=== PATIENT | female | born 1990 | race African-American/Black ===

== ENCOUNTER 2017-06-03 14:42 | Emergency (ER) | payer MEDICAID, OTHER ==
[~2017-06-03 14:42] MED LIST: DIFL150T PO; METR1GEL2 PV; ORTHDIS TD
[2017-06-03 14:43] VITALS: BP 124/76; PULSE 80; RESP 12; TEMP 98.4; O2SAT 99
[2017-06-03 15:51] LABS: AUTOMATED NEUTROPHIL # 5.5 TH/MM3 (1.8-7.7); BASOPHIL # 0.1 TH/MM3 (0-0.2); BASOPHIL % 0.6 % (0.0-2.0); EOSINOPHIL # 0.3 TH/MM3 (0-0.4); EOSINOPHIL % 3.4 % (0.0-4.0); HEMATOCRIT 34.4 % (35.0-46.0); HEMO FLAGS DIFF FINAL; LYMPH % 30.5 % (9.0-44.0); LYMPHOCYTE # 2.9 TH/MM3 (1.0-4.8); MEAN CELL VOLUME 95.2 FL (80.0-100.0); MEAN CORPUSCULAR HEMOGLOBIN 32.6 PG (27.0-34.0); MEAN CORPUSCULAR HGB CONC 34.3 % (32.0-36.0); MONO % 8.2 % (0.0-8.0); NEUT % 57.3 % (16.0-70.0); PLATELET COUNT 208 TH/MM3 (150-450); RED BLOOD COUNT 3.62 MIL/MM3 (4.00-5.30); RED CELL DISTRIBUTION WIDTH 13.3 % (11.6-17.2); WHITE BLOOD COUNT 9.6 TH/MM3 (4.0-11.0)
[2017-06-03 15:56] LABS: BACTERIA, URINE FEW /hpf; BLOOD, URINE NEG (NEG); COMMENT (UR) CULTURE INDICATED; CULTURE IF INDICATED CULTURE INDICATED; GLUCOSE,URINE NEG (NEG); KETONE, URINE NEG (NEG); MUCUS URINE FEW /lpf (OCC); NITRITE,URINE NEG (NEG); SQUAMOUS EPITHELIAL CELL URINE 3 /hpf (0-5); URINE COLOR YELLOW (YELLW/STRAW)
[2017-06-03 15:58] LABS: APTT (PATIENT) 24.1 SEC (24.3-30.1); INTERNATIONAL NORMALIZED RATIO 0.9 RATIO
[2017-06-03] MEDS ORDERED: PREN29TA PO (16:02)
[2017-06-03 16:06] VITALS: BP 111/62; PULSE 74; RESP 16; O2SAT 100
[2017-06-03 16:19] LABS: BICARBONATE 22.6 MEQ/L (21.0-32.0); POTASSIUM 3.9 MEQ/L (3.5-5.1)
[2017-06-03 17:00] VITALS: BP 115/65; PULSE 78; RESP 14; O2SAT 100
--- NOTE | 2017-06-03 17:13 | PD ---
HPI Chief Complaint: Abdominal Pain Time Seen by Provider: 16:17 Travel History International Travel<30 days: No Contact w/Intl Traveler<30days: No Traveled to known affect area: No History of Present Illness HPI 27-year-old approximately 12 weeks female presents to the emergency room 3 evaluation of discharge and lower pelvic pain for the past week. Discharge has changed in color from yellow to dark red. Patient states it reminds her of the mucus plug. She had an ultrasound at 8 weeks that showed she had a subchorionic hemorrhage. She has not seen an OB yet because she has not been able to get her insurance worked out. Denies any concern for STD. She has some dysuria and occasional back pain. No fever, chills, nausea, vomiting. PFSH Past Medical History Medical History: Denies Significant Hx Diminished Hearing: No Influenza Vaccination: No ?: LMP: 03/04/2017 : 5 Para: 4 Past Surgical History Appendectomy: Yes Social History Alcohol Use: No Tobacco Use: No Substance Use: No Allergies-Medications (Allergen,Severity, Reaction): Coded Allergies: lemon (Unverified Allergy, Severe, hives, 06/03/17) Reported Meds & Prescriptions Reported Meds & Active Scripts Active Flagyl (Metronidazole) 500 Mg Tab 500 Mg PO Q12HR 7 Days Macrobid (Nitrofurantoin Monohydrate Macrocrystals) 100 Mg Capsule 100 Mg PO BID 7 Days Reported Plus Iron 29-1 mg ( Vit-Iron Carbonyl) 29 Mg Iron-1 Mg Tab 1 Tab PO DAILY Review of Systems Except as stated in HPI: all other systems reviewed are Neg Physical Exam Narrative GENERAL: Well-nourished, well-developed female in no acute distress. Afebrile. Ambulatory. SKIN: Focused skin assessment warm/dry. HEAD: Normocephalic. EYES: No scleral icterus. No injection or drainage. NECK: Supple, trachea midline. No JVD or lymphadenopathy. CARDIOVASCULAR: Regular rate and rhythm without murmurs, gallops, or rubs. RESPIRATORY: Breath sounds equal bilaterally. No accessory muscle use. GASTROINTESTINAL: Abdomen soft, nondistended. Gravid. Mild tenderness to palpation to the left lower quadrant. GENITOURINARY: Normal external genitalia without lesions or erythema. Vaginal vault without blood but with significant, thick drainage. Cervical os could not be visualized but by feel was closed. No cervical motion tenderness. Uterus nontender and nonenlarged. Bilateral adnexa nontender without masses. Data Data Last Documented VS Vital Signs Date Time Temp Pulse Resp B/P (MAP) Pulse Ox O2 Delivery O2 Flow Rate FiO2 06/03/17 17:00 78 14 115/65 (82) 100 Room Air 06/03/17 14:43 98.4 Orders Orders Basic Metabolic Panel (Bmp) (06/03/17 14:51) Beta Hcg (Quant/Titer) (06/03/17 14:51) Complete Blood Count With Diff (06/03/17 14:51) Prothrombin Time / Inr (Pt) (06/03/17 14:51) Act Partial Throm Time (Ptt) (06/03/17 14:51) Urinalysis - C+S If Indicated (06/03/17 14:51) Gc And Chlamydia Pcr (06/03/17 14:51) Urine Culture (06/03/17 14:55) Wet Prep Profile (06/03/17 17:33) Labs Laboratory Tests Test 06/03/17 14:55 06/03/17 15:11 06/03/17 17:30 Urine Color YELLOW Urine Turbidity CLEAR Urine pH 6.0 Urine Specific Robinson 1.022 Urine Protein NEG mg/dL Urine Glucose (UA) NEG mg/dL Urine Ketones NEG mg/dL Urine Occult Blood NEG Urine Nitrite NEG Urine Bilirubin NEG Urine Urobilinogen LESS THAN 2.0 MG/DL Urine Leukocyte Esterase MOD Urine RBC 3 /hpf Urine WBC 12 /hpf Urine Squamous Epithelial Cells 3 /hpf Urine Bacteria FEW /hpf Urine Mucus FEW /lpf Microscopic Urinalysis Comment CULTURE INDICATED Chlamydia trachomatis DNA (PCR) NOT DETECTED Neisseria gonorrhoeae DNA (PCR) NOT DETECTED White Blood Count 9.6 TH/MM3 Red Blood Count 3.62 MIL/MM3 Hemoglobin 11.8 GM/DL Hematocrit 34.4 % Mean Corpuscular Volume 95.2 FL Mean Corpuscular Hemoglobin 32.6 PG Mean Corpuscular Hemoglobin Concent 34.3 % Red Cell Distribution Width 13.3 % Platelet Count 208 TH/MM3 Mean Platelet Volume 9.2 FL Neutrophils (%) (Auto) 57.3 % Lymphocytes (%) (Auto) 30.5 % Monocytes (%) (Auto) 8.2 % Eosinophils (%) (Auto) 3.4 % Basophils (%) (Auto) 0.6 % Neutrophils # (Auto) 5.5 TH/MM3 Lymphocytes # (Auto) 2.9 TH/MM3 Monocytes # (Auto) 0.8 TH/MM3 Eosinophils # (Auto) 0.3 TH/MM3 Basophils # (Auto) 0.1 TH/MM3 CBC Comment DIFF FINAL Differential Comment Prothrombin Time 10.0 SEC Prothromb Time International Ratio 0.9 RATIO Activated Partial Thromboplast Time 24.1 SEC Blood Urea Nitrogen 8 MG/DL Creatinine 0.58 MG/DL Random Glucose 71 MG/DL Calcium Level 8.9 MG/DL Sodium Level 136 MEQ/L Potassium Level 3.9 MEQ/L Chloride Level 105 MEQ/L Carbon Dioxide Level 22.6 MEQ/L Anion Gap 8 MEQ/L Estimat Glomerular Filtration Rate 152 ML/MIN Human Chorionic Gonadotropin, Quant 248628 MIU/ML Clue Cells (Wet Prep) NS Vaginal Trichomonas (Wet Prep) PRESENT Vaginal Yeast (Wet Prep) NS MDM Medical Decision Making Medical Screen Exam Complete: Yes Emergency Medical Condition: Yes Medical Record Reviewed: Yes Differential Diagnosis , STD, BV, subchorionic hemorrhage, threatened miscarriage Narrative Course 27-year-old 12 week female presents to the emergency room for evaluation of vaginal bleeding and abnormal discharge for the past week. She has also had associated left lower pelvic cramping and dysuria. Patient had ultrasonic 8 weeks ago confirmed intrauterine and subchorionic hemorrhage. Bedside ultrasound today shows active fetus with heart rate of 158 bpm. Abdomen is mildly tender to palpation of the left leg region. No peritoneal signs. No rebound tenderness. Pelvic exam reveals moderate, purulent, thick discharge. Cervical os is closed by feel but could not be visualized. Blood type is B+ and she will not require RhoGAM. CBC, BMP unremarkable. UA shows evidence of urinary tract infection for which patient will be discharged with prescription for Macrobid. She will also be treated empirically for gonorrhea and chlamydia. GC and chlamydia ordered and pending. Wet prep shows evidence of Trichomonas. She was reassured and told to follow- up with an OB or return to the emergency room for worsening symptoms. She understands and agrees to plan. Diagnosis Primary Impression: Trichomonas infection Additional Impression: UTI (urinary tract infection) Qualified Codes: N30.00 - Acute cystitis without hematuria Referrals: [facility] [facility] Additional Instructions: Rest and drink plenty of fluids. Macrobid and Flagyl as directed, until gone. Tylenol as directed, as needed for pain. Apply ice to the affected area for 20 minutes at a time, as needed for pain and swelling. Follow-up with [facility] this week. Return to the emergency room for worsening symptoms. Scripts Metronidazole (Flagyl) 500 Mg Tab 500 MG PO Q12HR for Infection for 7 Days, TAB 0 Refills Prov: Cam Nieto MD 06/03/17 Nitrofurantoin Monohydrate Macrocrystals (Macrobid) 100 Mg Capsule 100 MG PO BID for Infection for 7 Days, #14 CAP 0 Refills Prov: Cam Nieto MD 06/03/17 Disposition: 01 DISCHARGE HOME Condition: Stable Brittany Marin Jun 03, 2017 17:13
[2017-06-03 17:55] LABS: CHLAMYDIA PCR NOT DETECTED (NOT DETECT); NEISSERIA PCR NOT DETECTED (NOT DETECT)
[2017-06-03] MEDS ORDERED: MACR100C2 PO (18:09)
[2017-06-03] MEDS ORDERED: METR-1 PO (18:09)
== END 2017-06-03 19:03 | disposition home or self-care (01) ==
LOC: NEPD 14:42
DX: O98.311 Other infections with a predominantly sexual mode of transmission complicating pregnancy, first trimester (principal); A59.9 Trichomoniasis, unspecified; O23.11 Infections of bladder in pregnancy, first trimester; Z3A.12 12 weeks gestation of pregnancy
CPT/HCPCS: 80048; 81001; 84702; 85025; 85610; 85730; 87086; 87210; 87491; 87591; 99283

== ENCOUNTER → 2017-09-04 | Outpatient (CLI) | payer OTHER ==
[~2017-09-04] MED LIST changes: -DIFL150T PO; +FERRTAB2 PO; -METR1GEL2 PV; -ORTHDIS TD; +[UNRECOGNIZED DRUG - CODE] PO
== END ==
LOC: HPND 09:17
PROVIDERS: ATTEND Obstetrics & Gynecology
DX: O09.892 Supervision of other high risk pregnancies, second trimester (principal)
CPT/HCPCS: 76805

== ENCOUNTER 2017-09-19 17:04 | Emergency (ER) | payer OTHER ==
[2017-09-19 18:13] LABS: BACTERIA, URINE RARE /hpf; BILIRUBIN, URINE NEG (NEG); BLOOD, URINE NEG (NEG); GLUCOSE,URINE NEG (NEG); KETONE, URINE NEG (NEG); MUCUS URINE FEW /lpf (OCC); NITRITE,URINE NEG (NEG); PH, URINE 6.5 (5.0-8.5); SQUAMOUS EPITHELIAL CELL URINE 7 /hpf (0-5); URINE COLOR LIGHT-YELLOW (YELLW/STRAW); URINE LEUKOCYTE ESTERASE NEG (NEG)
--- NOTE | 2017-09-19 18:36 | PD ---
HPI Chief Complaint Vaginal pressure Travel History International Travel<30 Days: No Contact w/Intl Traveler<30Days: No Known Affected Area: No History of Present Illness HPI 27-year-old 304, IUP at 28.0 care complicated by history of delivery 3, obesity history of with a heart defect Patient presents complaining of onset of vaginal pressure today that radiates to her buttocks. She reports that this is a different sensation that she has felt the past and due to her history of 3 deliveries she came to get this checked out. She denies any contractions or painful cramping. She denies any leaking of fluid or vaginal bleeding. There are no aggravating or alleviating factors and no attempted treatments. Weeks Gestation: 28 Para: 4 : 5 Miscarriage: 0 : 0 History Past Medical History Narrative Medical Obesity Obstetric History Obstetric History delivery 3 at 31, 35, and 36 weeks Term delivery 1 at 38 weeks Past Surgical History Narrative Surgical Appendectomy Family History Narrative Family History Diabetes, hypertension Social History Alcohol Use: No Tobacco Use: No Substance Abuse: No Allergies-Medications (Allergen,Severity, Reaction): Coded Allergies: lemon (Unverified Allergy, Severe, hives, 07/29/17) Home Meds Active Scripts Docusate Sodium (Gnp Stool Softener) 100 Mg Cap, 1 CAP PO BID for 30 Days, #60 CAP 2 Refills Prov:Milagros Damon CNM [facility] 07/15/17 Multi-Vit/Iron-Folic [id number] C (Ferralet) 90-1-0.012-120 mg Tab, 11 CAPLET PO DAILY for 30 Days, #60 CAPLET 2 Refills Prov:Milagros Damon CNM [facility] 07/15/17 Review of Systems Except as stated in HPI: all other systems reviewed are Neg Physical Exam Narrative GENERAL: Well-nourished, well-developed patient. SKIN: Warm and dry. HEAD: Normocephalic and atraumatic. EYES: No scleral icterus. No injection or drainage. ENT: No nasal drainage noted. Mucous membranes pink. Airway patent. NECK: Supple, trachea midline. No JVD. CARDIOVASCULAR: Regular rate and rhythm without murmurs, gallops, or rubs. RESPIRATORY: Breath sounds equal bilaterally. No accessory muscle use. BREASTS: Deferred ABDOMEN/GI: Abdomen soft, non-tender, bowel sounds present, no rebound, no guarding Gravid GENITOURINARY: External Genitalia: intact and normal in appearance. Normal BUS. Grossly normal rugae. No cervical or vaginal masses. Physiologic discharge noted. Cervix appears visually closed. fibronectin was obtained and was negative. SVE closed/thick/high/posterior FHT's: heart tones are in the 130s with moderate long-term variability, good accelerations, no decelerations noted. The heart rate tracing is reactive for gestational age and is a category 1 heart rate tracing. EXTREMITIES: No cyanosis or edema. BACK: Nontender without obvious deformity. NEUROLOGICAL: Awake and alert. Motor and sensory grossly within normal limits. Normal speech. Musculoskeletal: Grossly normal range of motion, gait, muscle strength Psychiatric: Grossly normal memory and affect Data Data Orders Orders Vital Signs (Adult) .ON ADMISSION (09/19/17 17:54) ^ Labor Status (09/19/17 17:54) Urinalysis - C+S If Indicated (09/19/17 17:54) ^ Non Stress Test (09/19/17 17:54) Diet Liquid (09/19/17 Dinner) Fibronectin (09/19/17 17:54) Labs Laboratory Tests Test 09/19/17 17:45 Urine Color LIGHT-YELLOW Urine Turbidity CLEAR Urine pH 6.5 Urine Specific [place] 1.015 Urine Protein NEG Urine Glucose (UA) NEG Urine Ketones NEG Urine Occult Blood NEG Urine Nitrite NEG Urine Bilirubin NEG Urine Urobilinogen LESS THAN 2.0 Urine Leukocyte Esterase NEG Urine RBC 1 Urine WBC 1 Urine Squamous Epithelial Cells 7 Urine Bacteria RARE Urine Mucus FEW Microscopic Urinalysis Comment CULT NOT INDICATED Fibronectin NEGATIVE MDM Plan Assessment/plan: 1. IUP at 28.0 2. Poor OB history with history of delivery 3, patient to start receiving Rosette from her OB office 3. Vaginal/buttocks pressure: No evidence of uterine contractions on monitoring , fibronectin negative, cervix closed/thick/high, no evidence of labor. Strict labor precautions. Discussed Celestone administration if she presents with signs/symptoms of labor however there are no signs or symptoms of this today and the fibronectin was negative so will defer. Discussed that this has positive influence on the lung maturity. 4. Obesity 5. well-being: Reassuring testing with reactive NST for gestational age and category 1 heart rate tracing. heart rate is reassuring and appropriate for gestational age. kick counts daily. 6. Follow up with primary OB in 2-3 days or sooner if needed Diagnosis Diagnosis: Primary Impression: 28 weeks gestation of Additional Impression: False labor before 37 completed weeks of gestation during in third trimester, antepartum Disposition: 01 DISCHARGE HOME Condition: Rosie Abraham MD Sep 19, 2017 18:36
== END 2017-09-19 19:46 | disposition home or self-care (01) ==
LOC: HOBED 17:04
DX: O47.03 False labor before 37 completed weeks of gestation, third trimester (principal); O99.213 Obesity complicating pregnancy, third trimester; Z3A.28 28 weeks gestation of pregnancy
CPT/HCPCS: 81001; 82731; 99283

== ENCOUNTER → 2017-10-07 | Outpatient (CLI) | payer OTHER | LOC: HPND 13:19 | PROVIDERS: ATTEND Obstetrics & Gynecology | DX: O34.33 Maternal care for cervical incompetence, third trimester (principal); O09.213 Supervision of pregnancy with history of pre-term labor, third trimester; O43.893 Other placental disorders, third trimester | CPT/HCPCS: 76816 ==

== ENCOUNTER 2017-10-24 05:24 | Inpatient (IN) | payer OTHER ==
[2017-10-24] VITALS (13 sets, daily range): BP systolic 115–119; BP diastolic 57–74; PULSE 89–96; RESP 15–18; TEMP 98–98.5
[~2017-10-24] VITALS: Ht 157.5 cm; Wt 74.0 kg
[2017-10-24] MEDS ORDERED: SODIUM CHLORIDE 0.9% FLUSH 10 ML FLUSH IV FLUSH PRN (06:15)
[2017-10-24] MEDS ORDERED: PENICILLIN G POTASSIUM INJ 5,000,000 UNITS in SODIUM CHLORIDE 0.9% INJ 100 ML IV SCH (06:15)
[2017-10-24] MEDS ORDERED: ACETAMINOPHEN 325 MG TAB PO PRN (06:15)
[2017-10-24] MEDS ORDERED: ONDANSETRON HCL 4 MG/2 ML VIAL IV PUSH PRN (06:15)
[2017-10-24] MEDS ORDERED: CALCIUM GLUCONATE 10% 1 GM/10 ML VIAL IV PUSH PRN (06:15)
[2017-10-24] MEDS ORDERED: DOCUSATE SODIUM 100 MG CAP PO PRN (06:15)
--- NOTE | 2017-10-24 06:31 | HHI.HP ---
HPI Chief Complaint Checo martinez Date Seen: Oct 24, 2017 Time Seen: 06:00 Travel History International Travel<30 Days: No Contact w/Intl Traveler<30Days: No Known Affected Area: No History of Present Illness HPI Patient is 27-year-old black female 33 weeks gestation [facility] and presents with premature rupture the membranes, her amnisure is positive, she denies bleeding or significant pain she is however having a few irregular contractions. heart rate tracing is reactive. Patient was hospital last week [place] for vaginal bleeding she described as more than a period, she received steroids in that hospitalization and she says they could not find the reason for her bleeding she was kept about 72 hours and then sent home. She has a history of placental cyst on ultrasound in this is documented in her records also she has a history of delivery with 3 of her 4 current children and in 1 of those deliveries she did have PROM Weeks Gestation: 33 Para: 4 : 5 History Obstetric History Obstetric History with 3 of those deliveries Has had vaginal bleeding in this was hospitalized last week [facility] Past Surgical History Narrative Surgical Appendectomy Social History Narrative Social History She had marijuana use prior to none in Alcohol Use: No Tobacco Use: No Substance Abuse: Yes Allergies-Medications (Allergen,Severity, Reaction): Coded Allergies: lemon (Unverified Allergy, Severe, hives, 10/24/17) bee venom protein (honey bee) (Verified Allergy, Unknown, 10/24/17) Home Meds Active Scripts Multi-Vit/Iron-Folic [id number] C (Ferralet) 90-1-0.012-120 mg Tab, 11 CAPLET PO DAILY for 30 Days, #60 CAPLET 2 Refills Prov:Milagros Damon CNM [facility] 07/15/17 Discontinued Scripts Docusate Sodium (Gnp Stool Softener) 100 Mg Cap, 1 CAP PO BID for 30 Days, #60 CAP 2 Refills Prov:Milagros Damon CNM [facility] 07/15/17 Review of Systems General / Constitutional: No: Fever, Weight Gain, Chills, Other Eyes: No: Diploplia, Blurred Vision, Visual changes, Pain, Photophobia HENT: No: Headaches, Vertigo, Lightheadedness Cardiovascular: No: Irregular Rhythm, Chest Pain or Discomfort, Palpitations, Tachycardia, Syncope, Varicosities, Edema, Cyanosis Respiratory: No: Cough, Short of Breath, Other Gastrointestinal: No: Nausea, Vomiting, Diarrhea Genitourinary: No: Decreased Urinary Output, Oliguria Musculoskeletal: No: Limited ROM, Weakness, Cramping, Edema, Pain Skin: No Rash, No Itching, No Dryness, No Lumps, No Change in Pigmentation, No Change in Nails, No Alopecia, No Lesions Neurologic: No: Weakness, Dizziness, Syncope, Focal Abnormalities, Coordination Problem, Headache, Slurred Speech, Seizures Psychiatric: No: Depression, Suicidal Ideations, Homicidal Ideation Endocrine: No: Heat Intolerance, Cold Intolerance, Polydipsia, Polyuria, Other Physical Exam Narrative GENERAL: Well-nourished, well-developed patient. SKIN: Warm and dry. HEAD: Normocephalic and atraumatic. EYES: No scleral icterus. No injection or drainage. ENT: No nasal drainage noted. Mucous membranes pink. Airway patent. NECK: Supple, trachea midline. No JVD. CARDIOVASCULAR: Regular rate and rhythm without murmurs, gallops, or rubs. RESPIRATORY: Breath sounds equal bilaterally. No accessory muscle use. BREASTS: Bilateral exam showed no masses , no retractions, no nipple discharge. ABDOMEN/GI: Abdomen soft, non-tender, bowel sounds present, no rebound, no guarding Gravid to [-33] weeks size Fundal Height: [33-] GENITOURINARY: Membranes: ruptured] Uterine Contractions: [occasional-] FHT's: Category: [1-] Baseline: [-133] Reactive: [-R] Variability: [mod-] Decels: [none-] EXTREMITIES: No cyanosis or edema. BACK: Nontender without obvious deformity. No CVA tenderness. NEUROLOGICAL: Awake and alert. Motor and sensory grossly within normal limits. Five out of 5 muscle strength in all muscle groups. Normal speech. Caprini VTE Risk Assessment Caprini VTE Risk Assessment: No/Low Risk (score <= 1) Caprini Risk Assessment Model Point Value = 1 Point Value = 2 Point Value = 3 Point Value = 5 Age 41-60 Minor surgery BMI > 25 kg/m2 Swollen legs Varicose veins or History of unexplained or recurrent spontaneous Oral contraceptives or hormone replacement Sepsis (< 1 month) Serious lung disease, including pneumonia (< 1 month) Abnormal pulmonary function Acute myocardial infarction Congestive heart failure (< 1 month) History of inflammatory bowel disease Medical patient at bed rest Age 61-74 Arthroscopic surgery Major open surgery (> 45 min) Laparoscopic surgery (> 45 min) Malignancy Confined to bed (> 72 hours) Immobilizing plaster cast Central venous access Age >= 75 History of VTE Family history of VTE Factor V Leiden Prothrombin [id number] Lupus anticoagulant Anticardiolipin antibodies Elevated serum homocysteine Heparin-induced thrombocytopenia Other congenital or acquired thrombophilia Stroke (< 1 month) Elective arthroplasty Hip, pelvis, or leg fracture Acute spinal cord injury (< 1 month) Prophylaxis Regimen Total Risk Factor Score Risk Level Prophylaxis Regimen 0-1 Low Early ambulation 2 Moderate Order ONE of the following: *Sequential Compression Device (SCD) *Heparin 5000 units SQ BID 3-4 Higher Order ONE of the following medications: *Heparin 5000 units SQ TID *Enoxaparin/Lovenox 40 mg SQ daily (WT < 150 kg, CrCl > 30 mL/min) *Enoxaparin/Lovenox 30 mg SQ daily (WT < 150 kg, CrCl > 10-29 mL/min) *Enoxaparin/Lovenox 30 mg SQ BID (WT < 150 kg, CrCl > 30 mL/min) AND/OR *Sequential Compression Device (SCD) 5 or more Highest Order ONE of the following medications: *Heparin 5000 units SQ TID (Preferred with Epidurals) *Enoxaparin/Lovenox 40 mg SQ daily (WT < 150 kg, CrCl > 30 mL/min) *Enoxaparin/Lovenox 30 mg SQ daily (WT < 150 kg, CrCl > 10-29 mL/min) *Enoxaparin/Lovenox 30 mg SQ BID (WT < 150 kg, CrCl > 30 mL/min) AND *Sequential Compression Device (SCD) Data Data Orders Orders Ob (2e) Additional Admit Info (10/24/17 06:06) Admit To Inpatient (10/24/17 ) Vital Signs (Adult) Q4H (10/24/17 06:06) Activity Bed Rest (10/24/17 06:06) Heart (10/24/17 06:06) Diet Regular Basic (10/24/17 Breakfast) Lactated Ringer's 1000 Ml Inj (Lr 1000 M (10/24/17 06:06) Sodium Chloride 0.9% Flush (Ns Flush) (10/24/17 06:15) Sodium Chloride 0.9% Flush (Ns Flush) (10/24/17 09:00) Penicillin G Potassium Inj (Pfizerpen-G (10/24/17 06:15) Penicillin G Potassium Inj (Pfizerpen-G (10/24/17 10:15) Calcium Gluconate Inj (Calcium Gluconate (10/24/17 06:15) Acetaminophen (Tylenol) (10/24/17 06:15) Ondansetron Inj (Zofran Inj) (10/24/17 06:15) Docusate Sodium (Colace) (10/24/17 06:15) Owtcuqvt-Hbl-Thqlj-Iron Prenat (Stuartna (10/24/17 09:00) Zolpidem (Ambien) (10/24/17 06:15) Complete Blood Count With Diff (10/24/17 06:06) Complete Blood Count With Diff (10/25/17 06:00) Complete Blood Count With Diff (10/26/17 06:00) Complete Blood Count With Diff (10/27/17 06:00) Group B Beta Strep Scrn (Gbs) (10/24/17 06:06) Gc And Chlamydia Pcr (10/24/17 06:06) Drug Screen, Random Urine (10/24/17 06:06) Urinalysis - C+S If Indicated (10/24/17 06:06) Us Ob Limited (10/24/17 ) Erythromycin Ees (Ees) (10/24/17 12:00) Assessment/Plan Assessment and Plan P PROM at 33 weeks History of vaginal bleeding in the third trimester Plan-admit to labor and delivery, IV antibiotics, obtain records from [facility] confirm she had steroid therapy already, check CBC daily basis, check GBS GC chlamydia Explained to the patient that we would hope to keep her in the hospital for 1 week and @ 34 weeks plan induction of labor Brayden Lawton II, MD Oct 24, 2017 06:30
[2017-10-24] MEDS: LACTATED RINGER'S 1000 ML INJ 1,000 ML IV SCH ×3 (06:51→21:11)
[2017-10-24 07:06] LABS: AUTOMATED NEUTROPHIL # 7.5 TH/MM3 (1.8-7.7); BASOPHIL # 0.1 TH/MM3 (0-0.2); BASOPHIL % 0.5 % (0.0-2.0); EOSINOPHIL # 0.2 TH/MM3 (0-0.4); EOSINOPHIL % 1.8 % (0.0-4.0); HEMATOCRIT 32.7 % (35.0-46.0); HEMOGLOBIN 11.2 GM/DL (11.6-15.3); LYMPH % 24.5 % (9.0-44.0); LYMPHOCYTE # 2.9 TH/MM3 (1.0-4.8); MEAN CELL VOLUME 95.7 FL (80.0-100.0); MEAN CORPUSCULAR HEMOGLOBIN 32.7 PG (27.0-34.0); MEAN CORPUSCULAR HGB CONC 34.1 % (32.0-36.0); MEAN PLATELET VOLUME 7.8 FL (7.0-11.0); MONO % 9.4 % (0.0-8.0); MONOCYTE # 1.1 TH/MM3 (0-0.9); NEUT % 63.8 % (16.0-70.0); PLATELET COUNT 218 TH/MM3 (150-450); RED BLOOD COUNT 3.42 MIL/MM3 (4.00-5.30); RED CELL DISTRIBUTION WIDTH 13.7 % (11.6-17.2); WHITE BLOOD COUNT 11.7 TH/MM3 (4.0-11.0)
[2017-10-24 07:31] LABS: BILIRUBIN, URINE NEG (NEG); BLOOD, URINE MOD (NEG); GLUCOSE,URINE NEG (NEG); KETONE, URINE NEG (NEG); NITRITE,URINE NEG (NEG); SQUAMOUS EPITHELIAL CELL URINE 6 /hpf (0-5); URINE COLOR COLORLESS (YELLW/STRAW); URINE LEUKOCYTE ESTERASE NEG (NEG)
[2017-10-24 07:35] LABS: ALT (GPT) 14 U/L (10-53); AST (GOT) 13 U/L (15-37); BLOOD UREA NITROGEN 9 MG/DL (7-18); CALCIUM 8.9 MG/DL (8.5-10.1); CHLORIDE 104 MEQ/L (98-107); CREATININE 0.53 MG/DL (0.50-1.00); GLOMERULAR FILTRATION RATE 169 ML/MIN (>89); GLUCOSE,RANDOM 86 MG/DL (74-106); SODIUM (NA) 137 MEQ/L (136-145)
[2017-10-24 07:38] LABS: ALKALINE PHOSPHATASE 82 U/L (45-117); TOTAL BILIRUBIN ADULT 0.4 MG/DL (0.2-1.0)
[2017-10-24] MEDS: SODIUM CHLORIDE 0.9% FLUSH 10 ML FLUSH IV FLUSH SCH ×2 (09:00→20:03)
[2017-10-24] MEDS: MULTIVIT/MIN/PREN/FOL AC/IRON PRENATAL TAB PO SCH (09:10)
[2017-10-24] MEDS: PENICILLIN G POTASSIUM INJ 2,500,000 UNITS in SODIUM CHLORIDE 0.9% INJ 100 ML IV SCH ×4 (10:54→21:52)
[2017-10-24] MEDS: ERYTHROMYCIN ETHYLSUCCINATE 400 MG TAB PO SCH ×2 (12:18→18:09)
[2017-10-24] MEDS ORDERED: SODIUM CHLORID 0.9% 500 ML INJ 500 ML IV ONE (19:45)
[2017-10-24] MEDS: ZOLPIDEM TARTRATE 5 MG TAB PO PRN (21:52)
[2017-10-25] VITALS (22 sets, daily range): BP systolic 109–128; BP diastolic 52–70; PULSE 79–95; RESP 15–16; TEMP 98.1–98.8
[2017-10-25] MEDS: ERYTHROMYCIN ETHYLSUCCINATE 400 MG TAB PO SCH ×3 (00:25→11:22)
[2017-10-25] MEDS: PENICILLIN G POTASSIUM INJ 2,500,000 UNITS in SODIUM CHLORIDE 0.9% INJ 100 ML IV SCH ×6 (04:09→21:33)
[2017-10-25] MEDS: LACTATED RINGER'S 1000 ML INJ 1,000 ML IV SCH ×4 (04:10→21:33)
[2017-10-25 06:01] LABS: AUTOMATED NEUTROPHIL # 6.9 TH/MM3 (1.8-7.7); BASOPHIL % 0.2 % (0.0-2.0); EOSINOPHIL # 0.2 TH/MM3 (0-0.4); EOSINOPHIL % 1.6 % (0.0-4.0); HEMATOCRIT 29.9 % (35.0-46.0); HEMOGLOBIN 10.4 GM/DL (11.6-15.3); LYMPH % 25.3 % (9.0-44.0); LYMPHOCYTE # 2.7 TH/MM3 (1.0-4.8); MEAN CELL VOLUME 96.9 FL (80.0-100.0); MEAN CORPUSCULAR HEMOGLOBIN 33.7 PG (27.0-34.0); MEAN CORPUSCULAR HGB CONC 34.8 % (32.0-36.0); MEAN PLATELET VOLUME 7.9 FL (7.0-11.0); MONO % 8.6 % (0.0-8.0); MONOCYTE # 0.9 TH/MM3 (0-0.9); NEUT % 64.3 % (16.0-70.0); PLATELET COUNT 193 TH/MM3 (150-450); RED BLOOD COUNT 3.09 MIL/MM3 (4.00-5.30); RED CELL DISTRIBUTION WIDTH 13.8 % (11.6-17.2); WHITE BLOOD COUNT 10.7 TH/MM3 (4.0-11.0)
[2017-10-25] MEDS: SODIUM CHLORIDE 0.9% FLUSH 10 ML FLUSH IV FLUSH SCH ×2 (09:00→20:12)
[2017-10-25] MEDS ORDERED: DO NOT ADM ANY ANTICOAGULANT DRUGS PRN (09:10)
--- NOTE | 2017-10-25 10:22 | PD.OB.ANTE ---
Subjective Diagnosis: (1) Hx of delivery, currently (2) labor Antepartum ROS: Reports: Contractions, Denies: New complaints, Loss of fluid, Vaginal bleeding, movement normal Objective Vital Signs Vital Signs Date Time Temp Pulse Resp B/P (MAP) Pulse Ox O2 Delivery O2 Flow Rate FiO2 10/25/17 10:00 16 10/25/17 09:00 16 10/25/17 08:00 16 10/25/17 07:58 86 116/70 (85) 10/25/17 07:00 98.8 16 10/25/17 04:26 98.2 15 10/25/17 04:24 79 113/52 (72) 10/25/17 03:00 98.2 10/25/17 00:33 98.3 10/24/17 23:00 98.5 10/24/17 20:29 98.5 89 10/24/17 20:29 15 10/24/17 20:22 116/63 (80) 10/24/17 19:00 98.3 10/24/17 16:30 18 10/24/17 16:29 90 119/73 (88) 10/24/17 16:27 98.2 10/24/17 11:20 96 115/61 (79) 10/24/17 11:19 18 10/24/17 11:18 98.0 Lab & Micro Results Test 10/24/17 11:15 10/25/17 04:56 Group B Streptococcus (PCR) NEGATIVE White Blood Count 10.7 TH/MM3 Red Blood Count 3.09 MIL/MM3 Hemoglobin 10.4 GM/DL Hematocrit 29.9 % Mean Corpuscular Volume 96.9 FL Mean Corpuscular Hemoglobin 33.7 PG Mean Corpuscular Hemoglobin Concent 34.8 % Red Cell Distribution Width 13.8 % Platelet Count 193 TH/MM3 Mean Platelet Volume 7.9 FL Neutrophils (%) (Auto) 64.3 % Lymphocytes (%) (Auto) 25.3 % Monocytes (%) (Auto) 8.6 % Eosinophils (%) (Auto) 1.6 % Basophils (%) (Auto) 0.2 % Neutrophils # (Auto) 6.9 TH/MM3 Lymphocytes # (Auto) 2.7 TH/MM3 Monocytes # (Auto) 0.9 TH/MM3 Eosinophils # (Auto) 0.2 TH/MM3 Basophils # (Auto) 0.0 TH/MM3 CBC Comment DIFF FINAL Differential Comment Date/Time Source Procedure Growth Status 10/24/17 11:15 Genital Vaginal Group B Streptococcus Screen Pending Received Physical Exam GENERAL: Well-nourished, well-developed patient. CARDIOVASCULAR: Regular rate and rhythm without murmurs, gallops, or rubs. RESPIRATORY: Breath sounds equal bilaterally. No accessory muscle use. ABDOMEN/GI: Abdomen soft, non-tender. Fundus: [-] GENITOURINARY: External Genitalia: intact and normal in appearance Cervix: [-] Dilatation: [-] Effacement: [-] Station: [-] Presentation: [-] Membranes: [-] Uterine Contractions: [-] FHT's: Category: [-] Baseline: [-] Reactive: [-] Variability: [-] Decels: [-] EXTREMITIES: No cyanosis or edema, non-tender, without signs of DVT. Assessment and Plan Assessment and Plan P PROM at 33 weeks History of vaginal bleeding in the third trimester Plan-admit to labor and delivery, IV antibiotics, obtain records from [facility] confirm she had steroid therapy already, check CBC daily basis, check GBS GC chlamydia Explained to the patient that we would hope to keep her in the hospital for 1 week and @ 34 weeks plan induction of labor Yris Smith MD R2 Oct 25, 2017 10:22
[2017-10-25] MEDS ORDERED: OXYTOCIN 30 UNITS-500ML PREMIX 500 ML IV PRN (11:00)
--- NOTE | 2017-10-25 11:04 | PD.OB.ANTE ---
Subjective Diagnosis: (1) Hx of delivery, currently Diagnosis: Secondary (2) labor Diagnosis: Principal (3) premature rupture of membranes in third trimester Diagnosis: Principal Interval History Ms Gautam had no acute events overnight; however, she continues to lose fluid every time she moves around or is out of bed. She is feeling a few contractions. There is no VB, no dizziness, VIDAL, N/V/D, CP or SOB. All of her previous deliveries have been pre-term except for one. OB US yesterday had FLAQUITO 5. We will order an OB US with BPP this morning. Antepartum ROS: Reports: Loss of fluid, movement normal, Contractions, Denies: Vaginal bleeding Objective Vital Signs Vital Signs Date Time Temp Pulse Resp B/P (MAP) Pulse Ox O2 Delivery O2 Flow Rate FiO2 10/25/17 10:00 16 10/25/17 09:00 16 10/25/17 08:00 16 10/25/17 07:58 86 116/70 (85) 10/25/17 07:00 98.8 16 10/25/17 04:26 98.2 15 10/25/17 04:24 79 113/52 (72) 10/25/17 03:00 98.2 10/25/17 00:33 98.3 10/24/17 23:00 98.5 10/24/17 20:29 98.5 89 10/24/17 20:29 15 10/24/17 20:22 116/63 (80) 10/24/17 19:00 98.3 10/24/17 16:30 18 10/24/17 16:29 90 119/73 (88) 10/24/17 16:27 98.2 10/24/17 11:20 96 115/61 (79) 10/24/17 11:19 18 10/24/17 11:18 98.0 Lab & Micro Results Test 10/24/17 11:15 10/25/17 04:56 Group B Streptococcus (PCR) NEGATIVE White Blood Count 10.7 TH/MM3 Red Blood Count 3.09 MIL/MM3 Hemoglobin 10.4 GM/DL Hematocrit 29.9 % Mean Corpuscular Volume 96.9 FL Mean Corpuscular Hemoglobin 33.7 PG Mean Corpuscular Hemoglobin Concent 34.8 % Red Cell Distribution Width 13.8 % Platelet Count 193 TH/MM3 Mean Platelet Volume 7.9 FL Neutrophils (%) (Auto) 64.3 % Lymphocytes (%) (Auto) 25.3 % Monocytes (%) (Auto) 8.6 % Eosinophils (%) (Auto) 1.6 % Basophils (%) (Auto) 0.2 % Neutrophils # (Auto) 6.9 TH/MM3 Lymphocytes # (Auto) 2.7 TH/MM3 Monocytes # (Auto) 0.9 TH/MM3 Eosinophils # (Auto) 0.2 TH/MM3 Basophils # (Auto) 0.0 TH/MM3 CBC Comment DIFF FINAL Differential Comment Date/Time Source Procedure Growth Status 10/24/17 11:15 Genital Vaginal Group B Streptococcus Screen Pending Received Physical Exam GENERAL: Well-nourished, well-developed patient lying in bed looks uncomfortable. CARDIOVASCULAR: Regular rate and rhythm without murmurs, gallops, or rubs. RESPIRATORY: Breath sounds equal bilaterally. No accessory muscle use. ABDOMEN/GI: Abdomen soft, non-tender. Fundus: 33cm GENITOURINARY: External Genitalia: intact and normal in appearance Cervix: open Dilatation: 1 Effacement: 50 Station: -2 Presentation: vtx Membranes: ruptured (amnisure positive 10/23/17) Uterine Contractions: occasional FHT's: Category: 1 Baseline: 135 Reactive: yes Variability: moderate Decels: absent EXTREMITIES: No cyanosis or edema, non-tender, without signs of DVT. Assessment and Plan Problem List: (1) Hx of delivery, currently ICD Codes: O09.219 - Hx of delivery, currently Status: Acute (2) labor ICD Codes: O60.10X0 - labor Status: Acute (3) premature rupture of membranes in third trimester ICD Codes: O42.913 - premature rupture of membranes, unspecified as to length of time between rupture and onset of labor, third trimester Assessment and Plan 27YO at 33/1 weeks with PPROM 10/23/17 s/p betamethasone on previous hospitalization and PCN G IV abx x 2 days. Pt has Hx of pre-term in all but one delivery. Also has Hx of vaginal bleeding in the third trimester. Plan at admission: -admit to labor and delivery, -IV antibiotics, -obtain records from [facility] confirm she had steroid therapy already, -check CBC daily basis, -check GBS GC chlamydia -Explained to the patient that we would hope to keep her in the hospital for 1 week and @ 34 weeks plan induction of labor TODAY: -One more day of PCN G 2.5M units IV, then switch to PO Amoxicillin and Azithromycin for 5 days -Fentanyl 50mcg IV q6h PRN -LR IVF @ 150ml/hr -Tylenol 650mg PO q4h PRN -OB US w/BPP showing FLAQUITO decreased to 1.9 in 24 hours -Zofran 4mg IV q6h PRN -Docusate 100mg q12h PRN -PNV daily Pt seen and dw Brittanie Little and Souleymane Fox MD R1 Oct 25, 2017 11:04
[2017-10-25] MEDS: MULTIVIT/MIN/PREN/FOL AC/IRON PRENATAL TAB PO SCH (11:22)
--- NOTE | 2017-10-25 16:36 | HHI.FPPN ---
Addendum to progress note ADDENDUM Reason for addendum: Additonal documentation Additional information Dr Bowles received a call from Raiza on the Labor and Delivery floor of [facility] in [place] who verifies that Ms Gautam received two Betamethasone 12mg IM injections with the first at approx 1930hours on 10/13/17 and the second at approx 1930hours on 10/14/17. Souleymane Bowles MD R1 Oct 25, 2017 16:36
[2017-10-25] MEDS: ZOLPIDEM TARTRATE 5 MG TAB PO PRN (21:33)
[2017-10-26] VITALS (15 sets, daily range): BP systolic 109–144; BP diastolic 56–78; PULSE 83–105; RESP 15–18; TEMP 97.6–99
[2017-10-26] MEDS: PENICILLIN G POTASSIUM INJ 2,500,000 UNITS in SODIUM CHLORIDE 0.9% INJ 100 ML IV SCH ×6 (02:32→21:53)
[2017-10-26 05:16] LABS: AUTOMATED NEUTROPHIL # 5.2 TH/MM3 (1.8-7.7); BASOPHIL % 0.6 % (0.0-2.0); EOSINOPHIL # 0.1 TH/MM3 (0-0.4); EOSINOPHIL % 1.7 % (0.0-4.0); HEMOGLOBIN 10.2 GM/DL (11.6-15.3); LYMPH % 25.3 % (9.0-44.0); LYMPHOCYTE # 2.1 TH/MM3 (1.0-4.8); MEAN CELL VOLUME 96.5 FL (80.0-100.0); MEAN CORPUSCULAR HGB CONC 35.2 % (32.0-36.0); MEAN PLATELET VOLUME 7.5 FL (7.0-11.0); MONO % 8.6 % (0.0-8.0); MONOCYTE # 0.7 TH/MM3 (0-0.9); NEUT % 63.8 % (16.0-70.0); PLATELET COUNT 176 TH/MM3 (150-450); RED BLOOD COUNT 3.01 MIL/MM3 (4.00-5.30); RED CELL DISTRIBUTION WIDTH 13.8 % (11.6-17.2); WHITE BLOOD COUNT 8.2 TH/MM3 (4.0-11.0)
[2017-10-26] MEDS: LACTATED RINGER'S 1000 ML INJ 1,000 ML IV SCH ×3 (06:15→21:16)
[2017-10-26] MEDS: SODIUM CHLORIDE 0.9% FLUSH 10 ML FLUSH IV FLUSH SCH ×2 (09:00→21:00)
--- NOTE | 2017-10-26 09:03 | PD.OB.ANTE ---
Subjective Diagnosis: (1) Hx of delivery, currently (2) labor (3) premature rupture of membranes in third trimester Interval History Ms Gautam had no acute events overnight; she is no longer having leakage of fluid. She is feeling intermittent contractions. There is no VB, no dizziness, VIDAL, N/V/D, CP or SOB. All of her previous deliveries have been pre-term except for one. OB US 10/24 had FLAQUITO 6.1. Antepartum ROS: Reports: movement normal, Denies: New complaints, Loss of fluid, Vaginal bleeding, Contractions Objective Vital Signs Vital Signs Date Time Temp Pulse Resp B/P (MAP) Pulse Ox O2 Delivery O2 Flow Rate FiO2 10/26/17 07:45 98 124/63 (83) 10/26/17 07:45 16 10/26/17 07:44 98.1 10/26/17 06:17 98.2 10/26/17 06:06 98 15 109/61 (77) 10/26/17 01:50 97.6 10/26/17 01:50 83 111/67 (82) 10/26/17 01:49 16 10/25/17 21:41 98.1 15 10/25/17 21:37 89 124/67 (86) 10/25/17 20:00 98.2 10/25/17 17:42 98.3 16 10/25/17 17:04 90 109/63 (78) 10/25/17 17:00 16 10/25/17 16:00 16 10/25/17 15:00 16 10/25/17 13:57 16 10/25/17 12:52 16 10/25/17 12:30 16 10/25/17 12:00 98.4 16 10/25/17 11:00 16 10/25/17 10:07 95 128/66 (86) 10/25/17 10:00 16 10/25/17 09:00 16 Lab & Micro Results Test 10/26/17 05:06 White Blood Count 8.2 TH/MM3 Red Blood Count 3.01 MIL/MM3 Hemoglobin 10.2 GM/DL Hematocrit 29.0 % Mean Corpuscular Volume 96.5 FL Mean Corpuscular Hemoglobin 34.0 PG Mean Corpuscular Hemoglobin Concent 35.2 % Red Cell Distribution Width 13.8 % Platelet Count 176 TH/MM3 Mean Platelet Volume 7.5 FL Neutrophils (%) (Auto) 63.8 % Lymphocytes (%) (Auto) 25.3 % Monocytes (%) (Auto) 8.6 % Eosinophils (%) (Auto) 1.7 % Basophils (%) (Auto) 0.6 % Neutrophils # (Auto) 5.2 TH/MM3 Lymphocytes # (Auto) 2.1 TH/MM3 Monocytes # (Auto) 0.7 TH/MM3 Eosinophils # (Auto) 0.1 TH/MM3 Basophils # (Auto) 0.0 TH/MM3 CBC Comment DIFF FINAL Differential Comment Date/Time Source Procedure Growth Status 10/24/17 11:15 Genital Vaginal Group B Streptococcus Screen Pending Received Physical Exam GENERAL: Well-nourished, well-developed patient. CARDIOVASCULAR: Regular rate and rhythm without murmurs, gallops, or rubs. RESPIRATORY: Breath sounds equal bilaterally. No accessory muscle use. ABDOMEN/GI: Abdomen soft, non-tender. GENITOURINARY: External Genitalia: deferred Membranes: PPROM Uterine Contractions: intermittent, irritability FHT's: Category: 1 Baseline: 130 Reactive: 145 Variability: mod Decels: absent EXTREMITIES: No cyanosis or edema, non-tender, without signs of DVT. Assessment and Plan Problem List: (1) Hx of delivery, currently ICD Codes: O09.219 - Hx of delivery, currently Status: Acute (2) labor ICD Codes: O60.10X0 - labor Status: Acute (3) premature rupture of membranes in third trimester ICD Codes: O42.913 - premature rupture of membranes, unspecified as to length of time between rupture and onset of labor, third trimester Assessment and Plan 27YO at 33/2 weeks with PPROM with rupture 10/23/17 s/p betamethasone 10/14- on previous hospitalization and PCN G IV abx x 2 days. Pt has Hx of pre-term in all but one delivery. Also has Hx of vaginal bleeding in the third trimester. Plan at admission: -admit to antepartum -IV antibiotics - continue PCN G 2.5M until 10/26, then switch to PO Amoxicillin and Azithromycin for 5 days -records from [facility] confirm she had steroid therapy already -check GBS GC chlamydia: negative -Explained to the patient that we would hope to keep her in the hospital for 1 week and @ 34 weeks plan induction of labor Other mgmt: -Fentanyl 50mcg IV q6h PRN -LR IVF @ 150ml/hr -Tylenol 650mg PO q4h PRN -OB US w/BPP showing FLAQUITO decreased to 1.9 in 24 hours -Zofran 4mg IV q6h PRN -Docusate 100mg q12h PRN -PNV daily Pt seen and dw Dr. Brittanie Smith,Yris Fontanez MD R2 Oct 26, 2017 09:03
[2017-10-26] MEDS: MULTIVIT/MIN/PREN/FOL AC/IRON PRENATAL TAB PO SCH (09:32)
--- NOTE | 2017-10-26 22:45 | PD.LABORPN ---
Subjective Subjective Patient is a 33 week intrauterine with PPROM now starting to go into labor. She is having regular contractions having a great deal of pain with those contractions. Check of her cervix shows cervix now 3 cm/90/-2/vertex Impression--P PROM and now labor Plan-move the patient over labor and delivery and anticipate vaginal delivery, will cover with IV antibiotics Objective Vital Signs Vital Signs Date Time Temp Pulse Resp B/P (MAP) Pulse Ox O2 Delivery O2 Flow Rate FiO2 10/26/17 20:40 18 10/26/17 20:25 94 120/64 (82) 10/26/17 20:25 98.8 10/26/17 17:47 105 129/67 (87) 10/26/17 17:45 99.0 16 Objective Pelvic Exam: Cervix: [-] Dilatation: [3] Effacement: [90-] Station: [-2] Presentation: [vtx-] Membranes: [ ruptured] Uterine Contractions: [q 5 min-] FHT's: Category: [1-] Baseline: [133-] Reactive: [R-] Variability: [mod-] Decels: [-none] Weeks Gestation: 33 Assessment/Plan Problem List: (1) Hx of delivery, currently ICD Codes: O09.219 - Hx of delivery, currently Status: Acute (2) labor ICD Codes: O60.10X0 - labor Status: Acute (3) premature rupture of membranes in third trimester ICD Codes: O42.913 - premature rupture of membranes, unspecified as to length of time between rupture and onset of labor, third trimester Brayden Lawton II, MD Oct 26, 2017 22:45
[2017-10-26] MEDS ORDERED: LIDOCAINE HCL 1% PF 30 ML VIAL ONE (23:10)
[2017-10-26] MEDS ORDERED: OXYTOCIN 30 UNITS-500ML PREMIX 500 ML ONE (23:10)
[2017-10-26] MEDS ORDERED: OXYTOCIN 30 UNITS 500ML PREMIX IV ONE (23:30)
[2017-10-26] MEDS ORDERED: LIDOCAINE HCL 1% 50 ML VIAL INFIL PRN (23:30)
[2017-10-26] MEDS ORDERED: MINERAL OIL 10 ML VIAL TOPICAL PRN (23:30)
[2017-10-26] MEDS ORDERED: NS 500 ML BOLUS IV PRN (23:45)
[2017-10-26] MEDS ORDERED: NS 1000 ML IV PRN (23:45)
[2017-10-26] MEDS ORDERED: LIDOCAINE HCL 1% 50 ML VIAL I-DERMAL PRN (23:45)
[2017-10-26] MEDS ORDERED: ONDANSETRON HCL 4 MG/2 ML VIAL IV PUSH PRN (23:45)
[2017-10-26] MEDS ORDERED: CITRIC ACID-SODIUM CITRATE LIQ 30 ML UDC PO SCH (23:45)
[2017-10-26] MEDS ORDERED: LACTATED RINGER'S 1000 ML BOLUS IV PRN (23:45)
[2017-10-26] MEDS ORDERED: LACTATED RINGER'S 1000 ML IV SCH (23:45)
[2017-10-27] VITALS (12 sets, daily range): BP systolic 100–140; BP diastolic 53–90; PULSE 79–109; RESP 9–20; TEMP 97.9–98.3; O2SAT 98
--- NOTE | 2017-10-27 01:03 | PD.OB.DELI ---
Weeks gestation: 33 Anesthesia: None Episiotomy: None Vaginal Delivery: Normal Presentation: Occiput anterior Nuchal Cord: None Delayed cord clamping (45 sec): Yes Infant: Male Delivery date: Oct 27, 2017 Delivery time: 00:49 One Minute : 8 Five Minute : 9 Weight: 1945 gm Placenta: Spontaneous delivery, Intact Laceration: No lacerations Estimated blood loss: 100 cc Additional Information 33 wk delivery , cord gas sent , placenta to path Brayden Lawton II, MD Oct 27, 2017 01:03
[2017-10-27] MEDS ORDERED: DOCUSATE SODIUM 50 MG/SENNA 8.6 MG TAB PO PRN (01:15)
[2017-10-27] MEDS ORDERED: ONDANSETRON ODT 4 MG TAB PO PRN (01:15)
[2017-10-27] MEDS ORDERED: WITCH HAZEL 50%/GLYCERIN 12.5% 40 PAD JAR TOPICAL PRN (01:15)
[2017-10-27] MEDS ORDERED: ALUMINUM/MAGNESIUM/SIMETH 30 ML CUP PO PRN (01:15)
[2017-10-27] MEDS ORDERED: BENZOCAINE 20% TOPICAL SPRAY 60 ML CAN TOPICAL PRN (01:15)
[2017-10-27] MEDS ORDERED: SODIUM CHLORIDE 0.9% FLUSH 10 ML FLUSH IV FLUSH PRN (01:15)
[2017-10-27] MEDS ORDERED: OXYTOCIN 30 UNITS-500ML PREMIX 500 ML IV SCH (01:15)
[2017-10-27] MEDS ORDERED: ACETAMINOPHEN 325 MG TAB PO PRN (01:15)
[2017-10-27] MEDS: oxyCODONE/ACETAMINOPHEN 5 MG/325 MG TAB PO PRN ×4 (01:25→20:05)
[2017-10-27] MEDS: ZOLPIDEM TARTRATE 5 MG TAB PO PRN ×2 (03:12→21:16)
[2017-10-27] MEDS: IBUPROFEN 800 MG TAB PO PRN ×2 (06:10→14:34)
[2017-10-27 07:49] LABS: AUTOMATED NEUTROPHIL # 8.5 TH/MM3 (1.8-7.7); BASOPHIL # 0.1 TH/MM3 (0-0.2); BASOPHIL % 0.5 % (0.0-2.0); EOSINOPHIL # 0.1 TH/MM3 (0-0.4); EOSINOPHIL % 1.2 % (0.0-4.0); HEMATOCRIT 32.3 % (35.0-46.0); HEMOGLOBIN 11.1 GM/DL (11.6-15.3); LYMPH % 16.3 % (9.0-44.0); LYMPHOCYTE # 1.9 TH/MM3 (1.0-4.8); MEAN CELL VOLUME 96.3 FL (80.0-100.0); MEAN CORPUSCULAR HEMOGLOBIN 33.1 PG (27.0-34.0); MEAN CORPUSCULAR HGB CONC 34.4 % (32.0-36.0); MEAN PLATELET VOLUME 7.9 FL (7.0-11.0); MONO % 10.6 % (0.0-8.0); MONOCYTE # 1.3 TH/MM3 (0-0.9); NEUT % 71.4 % (16.0-70.0); PLATELET COUNT 172 TH/MM3 (150-450); RED BLOOD COUNT 3.36 MIL/MM3 (4.00-5.30); RED CELL DISTRIBUTION WIDTH 13.8 % (11.6-17.2); WHITE BLOOD COUNT 11.9 TH/MM3 (4.0-11.0)
[2017-10-27] MEDS: SODIUM CHLORIDE 0.9% FLUSH 10 ML FLUSH IV FLUSH SCH ×2 (09:00→19:06)
[2017-10-27] MEDS: MULTIVIT/MIN/PREN/FOL AC/IRON PRENATAL TAB PO SCH (10:29)
[2017-10-27] MEDS ORDERED: MEASLES, MUMPS, RUBELLA VACCINE 0.5 ML VIAL SQ ONE (16:00)
[2017-10-27] MEDS ORDERED: DIPHTH/TETANUS/ACEL PERTUSSIS (BOOSTER) 0.5 ML VIAL/PFS IM ONE (16:00)
[2017-10-28] MEDS: oxyCODONE/ACETAMINOPHEN 5 MG/325 MG TAB PO PRN ×3 (01:09→10:20)
[2017-10-28] MEDS: IBUPROFEN 800 MG TAB PO PRN ×2 (01:10→10:18)
[2017-10-28 08:00] VITALS: BP 106/52; PULSE 70; RESP 18; TEMP 98.1
--- NOTE | 2017-10-28 08:10 | HHI.OB ---
Subjective Post Day: 1 Remarks Patient seen and examined this morning. AFVSS overnight. day #1. Patient states her pain has been controlled however she has been requiring PO percocet. Decreased lochia. Denies dysuria. No breast tenderness. Appetite good , without nausea or vomiting. Endorses + flatus. Ambulating well without issues. Denies fevers, chest pain, calf pain, shortness of breath, or cough. She otherwise has no other complaints or concerns this morning. Objective Vitals/I&O Vital Signs Date Time Temp Pulse Resp B/P (MAP) Pulse Ox O2 Delivery O2 Flow Rate FiO2 10/27/17 20:00 98.0 79 18 113/61 (78) 10/27/17 15:42 98.3 80 20 108/67 (81) 10/27/17 12:03 98 10/27/17 12:03 88 16 101/55 (70) 10/27/17 11:00 20 98 10/27/17 10:32 92 140/72 (94) 10/27/17 10:32 9 Objective Remarks GENERAL: Well-nourished, well-developed patient. CARDIOVASCULAR: Regular rate and rhythm without murmurs, gallops, or rubs. RESPIRATORY: Breath sounds equal bilaterally. No accessory muscle use. ABDOMEN/GI: Abdomen soft, non-tender. Fundus: Firm, non-tender at umbilicus. GENITOURINARY: Light to moderate bleeding. EXTREMITIES: No cyanosis or edema, non-tender, without signs of DVT. Medications and IVs Current Medications Medications (Trade) Dose Ordered Sig/Oswald Route Start Time Stop Time Status Last Admin (Stuartnatal Plus 3 ) 1 tab DAILY PO 10/24/17 09:00 10/27/17 10:29 (NS Flush) 2 ml BID IV FLUSH 10/27/17 09:00 (NS Flush) 2 ml UNSCH PRN IV FLUSH 10/27/17 01:15 (Tylenol) 650 mg Q4H PRN PO 10/27/17 01:15 10/27/17 06:10 (Motrin) 800 mg Q8H PRN PO 10/27/17 01:15 10/28/17 01:10 (Percocet 5-325 Mg) 1 tab Q4H PRN PO 10/27/17 01:15 10/28/17 06:11 (Americaine 20% Top Spr) 1 spray Q4H PRN TOPICAL 10/27/17 01:15 (Tucks Pads) 1 applic QID PRN TOPICAL 10/27/17 01:15 (Naheed-Colace) 2 tab Q12H PRN PO 10/27/17 01:15 10/27/17 10:30 (Ambien) 5 mg HS PRN PO 10/27/17 01:15 10/27/17 21:16 (Mag-Al Plus Susp Liq) 15 ml Q8H PRN PO 10/27/17 01:15 (Zofran Odt) 4 mg Q6H PRN PO 10/27/17 01:15 10/27/17 01:25 Assessment/Plan Problem List: (1) care following vaginal delivery ICD Codes: Z39.2 - Encounter for routine follow-up Assessment and Plan 27 year old now PPD#1. 1. Care - AFVSS - Encouraged OOB, as tolerated - Motrin prn pain - Advised pelvic rest x 6 weeks - Contraception: Discussed with patient this morning, still considering her options, will [facility] - Instructed patient to f/u with her OB provider at [facility] within 6 weeks dw OB Hospitalist Discharge Planning Stable for discharge home today North Ahmadi MD R2 Oct 28, 2017 08:10
[2017-10-28] MEDS ORDERED: IBUP1TAB7 PO (08:43)
--- NOTE | 2017-10-28 08:44 | HHI.DCPOC ---
Discharge Care Plan Diagnosis: (1) premature rupture of membranes in third trimester (2) care following vaginal delivery Report Symptoms to Your Doctor -Temperature above 100.5 degrees -Redness, of incision or excessive or foul smelling drainage -Unusual pain or calf pain -Increased vaginal bleeding -Painful or difficulty urinating -Feelings of extreme sadness or anxiety after 2 weeks Goals to Promote Your Health * To prevent worsening of your condition and complications * To maintain your health at the optimal level Directions to Meet Your Goals Take your medications as prescribed Follow your dietary instruction Follow activity as directed Ensure plenty of rest for recovery Drink fluids for hydration Keep your appointments as scheduled Take your immunizations and boosters as scheduled If your symptoms worsen call your PCP, if no PCP go to Urgent Care Center or Emergency Room Smoking is Dangerous to Your Health. Avoid second hand smoke Call the 24-hour crisis hotline for domestic abuse at Farideh Johnson MD R1 Oct 28, 2017 08:44
[2017-10-28] MEDS ORDERED: ACETAMINOPHEN 500 MG CPLT PO ONE (08:45)
[2017-10-28] MEDS ORDERED: IBUPROFEN 600 MG TAB PO ONE (08:45)
[2017-10-28] MEDS: MULTIVIT/MIN/PREN/FOL AC/IRON PRENATAL TAB PO SCH (10:18)
== END 2017-10-28 12:25 | disposition home or self-care (01) | DRG 775 ==
LOC: HOBED 05:24 → H2EA 06:07 → H2EB 10-26 22:42 → H1EA 10-27 02:08
PROVIDERS: ADMIT Obstetrics & Gynecology Maternal & Fetal Medicine; ATTEND Obstetrics & Gynecology Maternal & Fetal Medicine
PROC: 10E0XZZ Delivery of Products of Conception, External Approach (ICD-10-PCS; principal; 2017-10-27)
DX: O42.913 Preterm premature rupture of membranes, unspecified as to length of time between rupture and onset of labor, third trimester (principal); O60.14X0 Preterm labor third trimester with preterm delivery third trimester, not applicable or unspecified; Z3A.33 33 weeks gestation of pregnancy; Z37.0 Single live birth
CPT/HCPCS: 59025; 76815; 76816; 76819; 80053; 80307; 81001; 82805; 84112; 85025; 86850; 86900; 86901; 87081; 87150; 87491; 87591; 88307; 90715; J2540; J2590; J3010; J7040; J7120